=== PATIENT | male | born 1945 | race Caucasian/White ===

== ENCOUNTER → 2017-01-13 | Outpatient (CLI) | payer MEDICARE, OTHER ==
[~2017-01-13] MED LIST: ADULT WAL-100 MG/5 M PEG; ALBUTEROL MININEB NEB; ALBUTEROL0.83 MG/ML IH; AMITIZA PO; ANEXSIA 7.5/3251 TA1 JT; ARTIFICIAL TEAR15 M2 OU; ASPERCREME; ASPIRIN PO; ASPIRIN81 MG PO; ATIVAN; ATIVAN PO; AUGMENTIN SUBQ; AVINZA PO; BACLOFEN10 MG PO; BACTRIM DS TABL1 TAB PO; BISACODYL10 MG/SUPP; BISACODYL10 MG/SUPP PR; BROVANA15 MCG/2 M INH; CALCITRATE + V1 EACH PEG; CALCIUM CA500 MG/5 M PO; CALCIUM CARB PO; CARDIZEM PO; CARDURA PO; CARDURA4 M1 JT; CARDURA4 M1 PO; CARDURA4 M2 PEG; CETIRIZINE HCL10 MG PEG; CIPRODEX OTIC7.5 ML OT; CORRECTOL5 MG PO; CYMBALTA; CYMBALTA PO; DDAVP0.1 MG PO; DDAVP0.2 MG PO; DESMOPRESSIN A0.1 M1 JT; DESMOPRESSIN A0.1 M1 PEG; DESMOPRESSIN A0.1 MG PO; DIAZEPAM PO; DULOXETINE HCL60 MG JT; FENOFIBRATE48 MG PO; FIBER LAXATIVE0.52 G PO; FIBER STAT; FLOMAX0.4 MG; FLOMAX0.4 MG PO; FLONASE 0.05% N16 G1; FLONASE ALLERG9.9 ML; FLOXIN20 EA OP; FLUOXETINE HCL20 M1 PO; GABAPENTIN300 M2 JT; GUAIFENESIN W/C10 M1 JT; HALDOL; HALDOL PO; HEARTBURN150 MG PO; HYDROCODON-ACE1 EAC7 PO; HYDROCODON-ACE1 EAC9 PEG; IMDUR; IPRAT-ALBUT 0.5-3 ML IH; IPRATROPIU0.2 MG/1 M NEB; ISMO20 MG PO; ISORDIL PO; KLOR-CON PO; LACTULOSE10 G/15 ML; LACTULOSE10 G/15 ML PO; LAMICTAL PO; LAMICTAL100 MG PO; LAMICTAL25 MG PO; LASIX PO; LEVAQUIN PO; LEVEMIR100 UNITS/ SUBQ; LEVOTHYROXINE50 MCG PEG; LEVOTHYROXINE50 MCG PO; LIPITOR20 MG DOB; LYRICA PEG; LYRICA200 MG PEG; MACRODANTIN PO; MAPAP160 MG/51 JT; MAPAP160 MG/52 PO; METFORMIN HCL500 M1 JT; METFORMIN HCL500 M1 PO; METFORMIN PO; METHENAM HIP PO; METOCLOPRAM; METOPROLOL TART25 MG PEG; MIRALAX17 G1 PO; MONTELUKAST SOD10 MG JT; MONTELUKAST SOD10 MG PEG; MORPHINE IR PO; MS CONTIN; MS CONTIN PO; MYCOSTATIN15 GM TOP; MYLANTA400 MG PO; NASONEX17 GM; NEURONTIN300 MG PO; NEXIUM40 M1 PEG; NEXIUM40 MG/PACK GT; NITRO-DUR1 PATCH .1 TD; NITRODISC0.4 MG EXT; NITROGYLCERIN SUBLINGUAL; NITROGYLCERIN TOP; NITROSTAT0.4 MG SL; NIZORAL 2% CREA15 GM TOP; NORVASC PO; NOVOLIN R; NOVOLIN R100 U/ML INJ; NOVOLIN R100 UNITS/ INJ; NOVOLIN R100 UNITS/ SUBQ; OCEAN SPRAY; OCUFLOX10 ML AD; OSMOLITE237 ML; OYSTER CALCIUM500 MG PO; PAXIL PO; PRILOSEC; PRILOSEC PO; PRILOSEC20 MG PO; PROZAC PO; PROZAC10 MG PO; PULMICORT0.5 MG/21 NEB; RHINOCORT AQUA8.6 GM; SENNA; SENNA PO; SENNA S TABLET1 TAB; SENNA S TABLET1 TAB PO; SENNA-LAX8.6 M1 PEG; SINGULAIR; SINGULAIR PO; SMZ-TMP; SOD CHLORIDE 0.45% IV; TRIFLUOPERAZINE1 MG PO; UTI-STAT L3875 MG/30 JT; UTI-STAT L3875 MG/30 PO; VASOTEC JT; VASOTEC PEG; VASOTEC PO; VASOTEC2.5 MG PO; VIBRAMYCIN100 M1 JT; VITAMIN D 4001 UDTAB PO; VITAMIN D1000 UNI1 JT; VITAMIN D1000 UNI1 PO; VITAMIN D32000 UNIT PEG; VOSOL HC OTIC S10 ML AD; ZEGERID40 MG/PKT PO; ZETIA PEG; [UNRECOGNIZED DRUG - OTHER]; [UNRECOGNIZED DRUG - OTHER]
== END | disposition home or self-care (01) ==
LOC: CSSDAY 09:00
DX: M81.0 Age-related osteoporosis without current pathological fracture (principal)
CPT/HCPCS: 96372; J0897